=== PATIENT | female | born 1950 | race Caucasian/White ===

== ENCOUNTER 2016-09-06 00:38 | Inpatient (IN) | payer MEDICARE ==
[~2016-09-06 00:38] MED LIST: ACETAMINOPHEN325 MG PO; ALDACTONE25 MG PO; ASPIRIN81 MG PO; BACLOFEN 10MG T10 MG PO; CEFDINIR300 MG PO; COLACE100 MG PO; DEMADEX20 MG PO; DULCOLAX10 MG PR; DUONEB 2.5-0.5M1 AMP NEB; FLORASTOR250 MG PO; GLUCOPHAGE500 MG PO; GLUCOTROL5 MG PO; HUMALOG100 UNIT/1 SQ; HUMALOG100 UNIT/3 SC; ISOSORBIDE MONO60 MG PO; K-DUR20 MEQ PO; KEPPRA500 MG PO; LANTUS100 UNIT/1 SQ; LASIX40 MG PO; LEVAQUIN 500MG500 MG PO; LEVEMIR100 UNIT/1 SC; LIPITOR10 MG PO; LISINOPRIL10 MG PO; LOFIBRA160 MG PO; LOPRESSOR25 MG PO; LOPRESSOR50 MG PO; LOVENOX40 MG/0.4 SC; MEDROL 4MG DOSEP4 MG PO; MELATONIN3 MG PO; MUCINEX600 MG PO; NIFEREX150 MG PO; NITROQUIK SL0.4 MG SL; NOVOLIN R100 UNIT/2 SC; OXY-IR 5MG5 MG PO; PHENERGAN25 M1 PO; PLAVIX75 MG PO; PRILOSEC20 MG PO; PROTONIX 40MG T40 MG PO; PROTONIX40 MG PO; SENOKOT-S TABL1 EACH PO; TAB-A-VITE1 EACH PO; TORSEMIDE20 MG PO; TRAMADOL HCL50 MG PO; TRIPLE ANTIBIO1 EACH TOP; TYLENOL325 M1 PO; TYLENOL650 MG PR; VENTOLIN HFA IN18 GM INH; WELLBUTRIN XL150 MG PO; WELLBUTRIN75 MG PO; XANAX0.25 MG PO
[2016-09-06 01:34] LABS: EOSINOPHIL 1.6 % (0-7); HCT 34.3 % (37.0-47.0); HGB 10.9 g/dl (12.5-16.0); LYMPHOCYTE 20.7 % (15-48); MCH 28.2 pg (25.0-31.0); MCHC 31.8 g/dL (32.0-36.0); MCV 88.9 fL (78.0-100.0); MONOCYTE 6.1 % (0-12); MPV 9.1 fL (6.0-9.5); NEUTROPHIL 70.6 % (41-80); PLT 270 K/uL (150-400); RBC 3.86 M/uL (4.20-5.40); RDW 14.5 % (11.5-14.0)
[2016-09-06 01:38] LABS: WBC 10.6 K/uL (4.0-10.5)
[2016-09-06 01:55] LABS: ALBUMIN 3.9 g/dL (3.4-4.8); BILIRUBIN - TOTAL 0.2 mg/dL (0.1-1.0); CREATININE 1.9 mg/dL (0.5-1.0); GLOBULIN (CALCULATION) 3.1 g/dL (2.2-4.2); POTASSIUM 3.8 mmol/L (3.5-5.1)
[2016-09-06 03:45] LABS: LACTIC ACID 2.6 mmol/L (0.5-2.2)
[2016-09-06 06:32] LABS: BASOPHIL 0.2 % (0-2); EOSINOPHIL 0.1 % (0-7); HCT 34.3 % (37.0-47.0); HGB 10.9 g/dl (12.5-16.0); MCH 27.7 pg (25.0-31.0); MCHC 31.8 g/dL (32.0-36.0); MCV 87.1 fL (78.0-100.0); MONOCYTE 1.7 % (0-12); MPV 9.3 fL (6.0-9.5); PLT 192 K/uL (150-400); RBC 3.94 M/uL (4.20-5.40); RDW 14.5 % (11.5-14.0); WBC 10.9 K/uL (4.0-10.5)
[2016-09-06 06:48] LABS: CREATININE 1.5 mg/dL (0.5-1.0); MAGNESIUM 1.43 mg/dL (1.40-2.10)
[2016-09-06 06:56] LABS: CKMB 2.42 ng/mL (0.97-4.94); TROPONIN T 0.023 ng/mL
[2016-09-06 11:47] LABS: BILIRUBIN NEGATIVE (NEGATIVE); BLOOD TRACE-INTACT Ery/uL (NEGATIVE); CLARITY CLEAR (CLEAR); COLOR COLORLESS (YELLOW); GLUCOSE (U) 3+ mg/dL (NORMAL); KETONE (U) NEGATIVE (NEGATIVE); LEUKOCYTES NEGATIVE Leu/uL (NEGATIVE); NITRITE NEGATIVE (NEGATIVE); PROTEIN NEGATIVE (NEGATIVE); UROBILINOGEN 0.2 mg/dL (0.2-1.0); pH 5.5 (5.0-9.0)
[2016-09-06 12:08] LABS: BACTERIA TRACE; RENAL EPITHELIAL CELLS RARE
[2016-09-06 12:48] LABS: CKMB 3.07 ng/mL (0.97-4.94); TROPONIN T 0.018 ng/mL
[2016-10-25] MEDS ORDERED: FEOSOL325 MG PO (16:08)
[2016-10-25] MEDS ORDERED: PRINIVIL10 MG PO (16:09)
[2016-10-25] MEDS ORDERED: ZITHROMAX500 MG PO (16:09)
[2016-10-25] MEDS ORDERED: FLORASTOR250 MG PO (16:10)
[2016-10-25] MEDS ORDERED: INVANZ 1GM1 GM/VIAL IM (16:11)
[2017-03-18] MEDS ORDERED: LOPID600 MG PO (10:13)
[2017-03-18] MEDS ORDERED: HUMALOG100 UNIT/3 SC (10:14)
[2017-03-18] MEDS ORDERED: LIPITOR40 MG PO (10:14)
[2017-03-18] MEDS ORDERED: LASIX20 MG PO (10:14)
[2017-03-18] MEDS ORDERED: WELLBUTRIN XL150 MG PO (10:14)
[2017-03-18] MEDS ORDERED: LEXAPRO10 MG PO (10:14)
[2017-03-18] MEDS ORDERED: NEURONTIN300 MG PO (12:24)
[2017-03-18] MEDS ORDERED: HYDROCODONE-APA1 TAB PO (14:29)
[2017-03-18] MEDS ORDERED: LANTUS SOL100 UNIT/1 SQ (14:30)
== END 2016-09-06 15:50 | disposition other institution (70) | DRG 208 ==
LOC: FER 00:38 → FICU 02:55
PROVIDERS: Allergy & Immunology; Emergency Medicine; ADMIT Internal Medicine
PROC: 0BH17EZ Insertion of Endotracheal Airway into Trachea, Via Natural or Artificial Opening (ICD-10-PCS; principal; 2016-09-06)
PROC: 5A1935Z Respiratory Ventilation, Less than 24 Consecutive Hours (ICD-10-PCS; 2016-09-06)
DX: J96.22 Acute and chronic respiratory failure with hypercapnia (principal); J96.21 Acute and chronic respiratory failure with hypoxia; J15.9 Unspecified bacterial pneumonia; J44.0 Chronic obstructive pulmonary disease with (acute) lower respiratory infection; E11.22 Type 2 diabetes mellitus with diabetic chronic kidney disease; J44.1 Chronic obstructive pulmonary disease with (acute) exacerbation; I69.354 Hemiplegia and hemiparesis following cerebral infarction affecting left non-dominant side; I27.2 Other secondary pulmonary hypertension; I25.10 Atherosclerotic heart disease of native coronary artery without angina pectoris; I25.5 Ischemic cardiomyopathy; F41.9 Anxiety disorder, unspecified; E78.5 Hyperlipidemia, unspecified; G40.909 Epilepsy, unspecified, not intractable, without status epilepticus; Y95 Nosocomial condition; Z95.0 Presence of cardiac pacemaker; Z99.81 Dependence on supplemental oxygen; Z79.82 Long term (current) use of aspirin; Z79.01 Long term (current) use of anticoagulants; Z87.891 Personal history of nicotine dependence; Z79.4 Long term (current) use of insulin; I12.9 Hypertensive chronic kidney disease with stage 1 through stage 4 chronic kidney disease, or unspecified chronic kidney disease; N18.9 Chronic kidney disease, unspecified
CPT/HCPCS: 31500; 36415; 36600; 71010; 80048; 80053; 81001; 82550; 82553; 82803; 83605; 83735; 83880; 84484; 85025; 87040; 87070; 87205; 87804; 87899; 93005; 94002; 94640; 94770; C9113; J1953; J1956; J2270; J2543; J2704; J2930; J3370

== ENCOUNTER 2016-10-11 12:12 | Inpatient (IN) | payer MEDICARE ==
[~2016-10-11] VITALS: Ht 157.5 cm; Wt 82.2 kg
[2016-10-11 14:28] LABS: BASOPHIL 0.4 % (0-2); EOSINOPHIL 1.2 % (0-7); HCT 37.4 % (37.0-47.0); HGB 11.7 g/dl (12.5-16.0); MCH 28.1 pg (25.0-31.0); MCHC 31.3 g/dL (32.0-36.0); MCV 89.9 fL (78.0-100.0); MONOCYTE 4.6 % (0-12); MPV 10.3 fL (6.0-9.5); NEUTROPHIL 51.8 % (41-80); PLT 355 K/uL (150-400); RBC 4.16 M/uL (4.20-5.40); RDW 14.9 % (11.5-14.0)
[2016-10-11 14:29] LABS: WBC 15.9 K/uL (4.0-10.5)
[2016-10-11 14:38] LABS: ALBUMIN 4.3 g/dL (3.4-4.8); BILIRUBIN - TOTAL 0.2 mg/dL (0.1-1.0); CREATININE 1.4 mg/dL (0.5-1.0); GLOBULIN (CALCULATION) 3.2 g/dL (2.2-4.2); POTASSIUM 3.7 mmol/L (3.5-5.1); TOTAL PROTEIN 7.5 g/dL (6.4-8.3)
[2016-10-12 04:19] LABS: HCT 29.9 % (37.0-47.0); HGB 9.4 g/dl (12.5-16.0); MCH 27.6 pg (25.0-31.0); MCHC 31.4 g/dL (32.0-36.0); MCV 87.7 fL (78.0-100.0); MPV 10.1 fL (6.0-9.5); RBC 3.41 M/uL (4.20-5.40); RDW 14.6 % (11.5-14.0); WBC 13.7 K/uL (4.0-10.5)
[2016-10-12 04:48] LABS: CREATININE 1.3 mg/dL (0.5-1.0); POTASSIUM 4.4 mmol/L (3.5-5.1)
[2016-10-13 03:50] LABS: HCT 27.4 % (37.0-47.0); HGB 8.6 g/dl (12.5-16.0); MCH 27.9 pg (25.0-31.0); MCHC 31.4 g/dL (32.0-36.0); MPV 9.7 fL (6.0-9.5); RBC 3.08 M/uL (4.20-5.40); RDW 14.8 % (11.5-14.0); WBC 11.5 K/uL (4.0-10.5)
[2016-10-13 04:07] LABS: CREATININE 1.7 mg/dL (0.5-1.0); POTASSIUM 3.6 mmol/L (3.5-5.1)
[2016-10-13] MEDS ORDERED: PREDNISONE 20MG20 MG PO (10:35)
--- NOTE | 2016-10-13 11:46 | NUR ---
PT DISCHARGED FROM TCU VIA WHEELCHAIR. PT TOLERATED TRANSPORT TO [facility]. VITALS STABE AT TIME OF DISCHARGE BP 130/54 HR 63 O2 100% ON 2LNC
--- NOTE | 2016-10-13 11:49 | NUR ---
DISCHARGE INSTRUCTIONS REVIEWED, NEW MEICATIONS REVIEWED. QUESTIONS ANSWERED, PT INSTRUCTED TO COME TO ER IF ANY WORSENING SYMPTOMS. PT VERBALIZED UNDERSTANDING OF ALL
[2016-10-13] MEDS ORDERED: LEVAQUIN250 MG PO (14:52)
[2016-10-25] MEDS ORDERED: FEOSOL325 MG PO (16:08)
[2016-10-25] MEDS ORDERED: PRINIVIL10 MG PO (16:09)
[2016-10-25] MEDS ORDERED: ZITHROMAX500 MG PO (16:09)
[2016-10-25] MEDS ORDERED: FLORASTOR250 MG PO (16:10)
[2016-10-25] MEDS ORDERED: INVANZ 1GM1 GM/VIAL IM (16:11)
[2017-03-18] MEDS ORDERED: LOPID600 MG PO (10:13)
[2017-03-18] MEDS ORDERED: LIPITOR40 MG PO (10:14)
[2017-03-18] MEDS ORDERED: LASIX20 MG PO (10:14)
[2017-03-18] MEDS ORDERED: HUMALOG100 UNIT/3 SC (10:14)
[2017-03-18] MEDS ORDERED: WELLBUTRIN XL150 MG PO (10:14)
[2017-03-18] MEDS ORDERED: LEXAPRO10 MG PO (10:14)
[2017-03-18] MEDS ORDERED: NEURONTIN300 MG PO (12:24)
[2017-03-18] MEDS ORDERED: HYDROCODONE-APA1 TAB PO (14:29)
[2017-03-18] MEDS ORDERED: LANTUS SOL100 UNIT/1 SQ (14:30)
== END 2016-10-13 11:39 | disposition home health service (06) | DRG 291 ==
LOC: FER 12:12 → FICU 16:21
PROVIDERS: Emergency Medicine; ADMIT Internal Medicine Adolescent Medicine
DX: I50.41 Acute combined systolic (congestive) and diastolic (congestive) heart failure (principal); J96.20 Acute and chronic respiratory failure, unspecified whether with hypoxia or hypercapnia; E11.22 Type 2 diabetes mellitus with diabetic chronic kidney disease; J44.1 Chronic obstructive pulmonary disease with (acute) exacerbation; I13.0 Hypertensive heart and chronic kidney disease with heart failure and stage 1 through stage 4 chronic kidney disease, or unspecified chronic kidney disease; I69.354 Hemiplegia and hemiparesis following cerebral infarction affecting left non-dominant side; G89.4 Chronic pain syndrome; I27.2 Other secondary pulmonary hypertension; N18.3 Chronic kidney disease, stage 3 (moderate); D63.1 Anemia in chronic kidney disease; E66.9 Obesity, unspecified; I25.10 Atherosclerotic heart disease of native coronary artery without angina pectoris; Z95.1 Presence of aortocoronary bypass graft; Z95.0 Presence of cardiac pacemaker; Z79.82 Long term (current) use of aspirin; Z79.01 Long term (current) use of anticoagulants; Z79.4 Long term (current) use of insulin
CPT/HCPCS: 36415; 36600; 80048; 80053; 82803; 82962; 84484; 85025; 85379; 93005; 94640; 97163; 97166; 97535; J0885; J1815; J1956; J2060; J2930

== ENCOUNTER 2020-09-21 14:44 | Day surgery (SDCO) | payer MEDICARE ==
[~2020-09-21] VITALS: Ht 157.5 cm; Wt 102.7 kg
[~2020-09-21 14:44] MED LIST changes: +ALLOPURINOL100 MG PO; +ASPIRIN EC81 MG PO; +CARVEDILOL6.25 MG PO; +COREG12.5 MG PO; +COUMADIN1 MG PO; +DOXYCYCLINE MO100 M1 PO; +FEOSOL325 MG PO; +FUROSEMIDE 40MG40 MG PO; +GLIPIZIDE5 MG PO; +HYDROCODON-ACE1 EAC4 PO; +HYDROCODONE-APA1 TAB PO; +INVANZ 1GM1 GM/VIAL IM; +LANTUS **100 UNITS/ SC; +LANTUS SOL100 UNIT/1 SQ; +LASIX80 MG PO; +LEVAQUIN250 MG PO; +LEXAPRO10 MG PO; +LIPITOR40 MG PO; +LOPID600 MG PO; +MACROBID100 MG PO; +NEURONTIN300 MG PO; +NORVASC5 MG PO; +PERCOCET 5-3251 EACH PO; +PHENERGAN12.5 M1 PO; +POTASSIUM CHLO10 ME1 PO; +PREDNISONE 10MG10 MG PO; +PREDNISONE 20MG20 MG PO; +PRINIVIL10 MG PO; +THERA M PLUS T1 EACH PO; +VIBRAMYCIN100 MG PO; +VITAMIN B-121000 MC1 PO; +ZITHROMAX500 MG PO
[2020-09-21 16:13] LABS: BASOPHIL 0.3 % (0-2); EOSINOPHIL 1.4 % (0-7); HCT 31.7 % (37.0-47.0); HGB 9.8 g/dl (12.5-16.0); LYMPHOCYTE 19.2 % (15-48); MCH 28.7 pg (25.0-31.0); MCHC 30.9 g/dL (32.0-36.0); MONOCYTE 7.2 % (0-12); MPV 9.7 fL (6.0-9.5); NRBC 0; PLT 122 K/uL (150-400); RBC 3.41 M/uL (4.20-5.40); RDW 14.3 % (11.5-14.0); WBC 7.9 K/uL (4.0-10.5)
[2020-09-21 16:50] LABS: BILIRUBIN NEGATIVE (NEGATIVE); BLOOD TRACE-INTACT Ery/uL (NEGATIVE); CLARITY CLEAR (CLEAR); COLOR YELLOW (YELLOW); GLUCOSE (U) 2+ mg/dL (NORMAL); LEUKOCYTES 1+ Leu/uL (NEGATIVE); NITRITE NEGATIVE (NEGATIVE); PROTEIN NEGATIVE (NEGATIVE); UROBILINOGEN 0.2 mg/dL (0.2-1.0)
[2020-09-21 16:54] LABS: INR 2.13 (0.9-1.2); PROTHROMBIN TIME 22.7 SECONDS (11.4-13.6); PTT 36.3 SECONDS (22.2-34.7)
[2020-09-21 17:03] LABS: BACTERIA TRACE; URINARY RBC RARE; URINARY WBC RARE
[2020-09-21 17:17] LABS: ALBUMIN 3.3 g/dL (3.4-5.0); BILIRUBIN - TOTAL 0.3 mg/dL (0.2-1.0); BUN/CREAT RATIO (CALC) 24.7 RATIO; CREATININE 1.54 mg/dL (0.51-0.95); GLOBULIN (CALCULATION) 4.2 g/dL; MAGNESIUM 1.9 mg/dL (1.8-2.4); POTASSIUM 3.7 mmol/L (3.5-5.1); TOTAL PROTEIN 7.5 g/dL (6.4-8.2)
[2020-09-21] MEDS ORDERED: STOOL SOFTENER100 MG PO (20:32)
[2020-09-21] MEDS ORDERED: ISOSORBIDE MONO60 MG PO (20:33)
[2020-09-21] MEDS ORDERED: LIPITOR40 M1 PO (20:33)
[2020-09-21] MEDS ORDERED: ZYLOPRIM100 MG PO (20:33)
[2020-09-21] MEDS ORDERED: FEOSOL325 MG PO (20:34)
[2020-09-21] MEDS ORDERED: NEURONTIN300 MG PO ×2 (20:35→20:36)
[2020-09-21] MEDS ORDERED: DEMADEX20 MG PO ×2 (20:35)
[2020-09-21] MEDS ORDERED: WARFARIN SODIUM2 MG PO (20:36)
[2020-09-21] MEDS ORDERED: NORCO 5-325 TA1 EACH PO (20:36)
[2020-09-21] MEDS ORDERED: ESCITALOPRAM OX20 MG PO (20:37)
[2020-09-21] MEDS ORDERED: COREG12.5 MG PO (20:37)
[2020-09-21] MEDS ORDERED: PANTOPRAZOLE SO40 MG PO (20:38)
[2020-09-21] MEDS ORDERED: HUMALOG100 UNIT/1 SC (20:39)
[2020-09-21] MEDS ORDERED: LANTUS **100 UNITS/ SC (20:40)
[2020-09-21] MEDS ORDERED: DAILY VALUE1 EACH PO (20:40)
[2020-09-22 05:58] LABS: HCT 30.3 % (37.0-47.0); HGB 9.5 g/dl (12.5-16.0); MCH 29.1 pg (25.0-31.0); MCHC 31.4 g/dL (32.0-36.0); MCV 92.7 fL (78.0-100.0); MPV 10.4 fL (6.0-9.5); RBC 3.27 M/uL (4.20-5.40); RDW 14.2 % (11.5-14.0)
[2020-09-22 06:01] LABS: INR 2.36 (0.9-1.2); PROTHROMBIN TIME 24.6 SECONDS (11.4-13.6)
[2020-09-22 06:10] LABS: BUN/CREAT RATIO (CALC) 19.5 RATIO; CREATININE 1.54 mg/dL (0.51-0.95); POTASSIUM 3.8 mmol/L (3.5-5.1)
[2020-09-23 06:35] LABS: BASOPHIL 0.2 % (0-2); EOSINOPHIL 1.5 % (0-7); HGB 9.6 g/dl (12.5-16.0); LYMPHOCYTE 28.3 % (15-48); MCH 29.2 pg (25.0-31.0); MCV 91.2 fL (78.0-100.0); MONOCYTE 8.1 % (0-12); MPV 9.4 fL (6.0-9.5); NEUTROPHIL 61.5 % (41-80); NRBC 0; PLT 129 K/uL (150-400); RBC 3.29 M/uL (4.20-5.40); RDW 14.1 % (11.5-14.0); WBC 8.2 K/uL (4.0-10.5)
[2020-09-23 06:53] LABS: BUN/CREAT RATIO (CALC) 19.5 RATIO; CREATININE 1.64 mg/dL (0.51-0.95); POTASSIUM 3.4 mmol/L (3.5-5.1)
--- NOTE | 2020-09-23 12:02 | NUR ---
09/23 MS Lawson lives with her spouse. She has home 02, rw, walk-in bath, wc, and cane. A referral was made to [facility] per patient choice; affliation explained. - Report to PEGGY Orellana RN.
--- NOTE | 2020-09-23 13:46 | NUR ---
PATIENT DISCHARGED VIA WHEELCHAIR ACCOMPANIED BY AND RN. IV AND ALL MONITORS DCD. DISCHARGE INSTRUCTIONS GIVEN TO BOTH PATIENT AND , VERBALIZED UNSTANDING
== END 2020-09-23 13:30 | disposition home health service (06) ==
LOC: FER 14:44 → FTCU 17:26
PROVIDERS: Emergency Medicine; Nurse Practitioner Family; ADMIT Hospitalist
DX: I11.0 Hypertensive heart disease with heart failure (principal); I50.31 Acute diastolic (congestive) heart failure; G47.33 Obstructive sleep apnea (adult) (pediatric); K21.9 Gastro-esophageal reflux disease without esophagitis; Z79.01 Long term (current) use of anticoagulants; Z20.822 Contact with and (suspected) exposure to COVID-19; Z86.73 Personal history of transient ischemic attack (TIA), and cerebral infarction without residual deficits
CPT/HCPCS: 36415; 71045; 80048; 80053; 81001; 82550; 82962; 83735; 83880; 84484; 85025; 85610; 85730; 93005; 93971; 97116; 97162; 97166; 97530; 97530-GP; G0378; U0002

== ENCOUNTER 2021-02-04 20:05 | Day surgery (SDCO) | payer MEDICARE ==
[~2021-02-04] VITALS: Ht 157.5 cm; Wt 89.0 kg
[~2021-02-04 20:05] MED LIST changes: +DAILY VALUE1 EACH PO; +ESCITALOPRAM OX20 MG PO; +HUMALOG100 UNIT/1 SC; +LIPITOR40 M1 PO; +NORCO 5-325 TA1 EACH PO; +PANTOPRAZOLE SO40 MG PO; +STOOL SOFTENER100 MG PO; +WARFARIN SODIUM2 MG PO; +ZYLOPRIM100 MG PO
[2021-02-04 21:38] LABS: BASOPHIL 0.4 % (0-2); EOSINOPHIL 1.6 % (0-7); HCT 33.7 % (37.0-47.0); HGB 10.2 g/dl (12.5-16.0); LYMPHOCYTE 19.1 % (15-48); MCH 27.3 pg (25.0-31.0); MCHC 30.3 g/dL (32.0-36.0); MCV 90.1 fL (78.0-100.0); NEUTROPHIL 72.7 % (41-80); NRBC 0; PLT 127 K/uL (150-400); RBC 3.74 M/uL (4.20-5.40); RDW 15.2 % (11.5-14.0)
[2021-02-04 21:46] LABS: INR 2.03 (0.9-1.2); PROTHROMBIN TIME 22.1 SECONDS (11.8-13.4)
[2021-02-04 21:54] LABS: ALBUMIN 3.9 g/dL (3.4-5.0); BILIRUBIN - TOTAL 0.3 mg/dL (0.2-1.0); BUN/CREAT RATIO (CALC) 19.3 RATIO; CREATININE 1.45 mg/dL (0.51-0.95); GLOBULIN (CALCULATION) 4.2 g/dL; TOTAL PROTEIN 8.1 g/dL (6.4-8.2)
[2021-02-04 22:00] LABS: PRO-BNP 3873 pg/mL (<125)
[2021-02-05] MEDS ORDERED: NEURONTIN300 MG PO (04:06)
[2021-02-05 05:58] LABS: BASOPHIL 0.4 % (0-2); EOSINOPHIL 0.2 % (0-7); HCT 35.3 % (37.0-47.0); HGB 10.9 g/dl (12.5-16.0); LYMPHOCYTE 15.6 % (15-48); MCH 27.1 pg (25.0-31.0); MCHC 30.9 g/dL (32.0-36.0); MCV 87.8 fL (78.0-100.0); MONOCYTE 0.9 % (0-12); MPV 10.3 fL (6.0-9.5); NEUTROPHIL 82.4 % (41-80); NRBC 0; PLT 114 K/uL (150-400); RBC 4.02 M/uL (4.20-5.40); RDW 15.1 % (11.5-14.0); WBC 5.6 K/uL (4.0-10.5)
[2021-02-05 06:07] LABS: INR 1.96 (0.9-1.2); PROTHROMBIN TIME 21.5 SECONDS (11.8-13.4)
[2021-02-05 06:15] LABS: BUN/CREAT RATIO (CALC) 18.3 RATIO; CREATININE 1.42 mg/dL (0.51-0.95); POTASSIUM 4.3 mmol/L (3.5-5.1)
[2021-02-06 05:43] LABS: BASOPHIL 0.3 % (0-2); EOSINOPHIL 0.4 % (0-7); HCT 30.9 % (37.0-47.0); HGB 9.6 g/dl (12.5-16.0); LYMPHOCYTE 24.6 % (15-48); MCH 27.5 pg (25.0-31.0); MCHC 31.1 g/dL (32.0-36.0); MCV 88.5 fL (78.0-100.0); MONOCYTE 7.5 % (0-12); MPV 10.5 fL (6.0-9.5); NRBC 0; PLT 115 K/uL (150-400); RBC 3.49 M/uL (4.20-5.40); RDW 15.4 % (11.5-14.0); WBC 9.6 K/uL (4.0-10.5)
[2021-02-06 05:58] LABS: BUN/CREAT RATIO (CALC) 22.5 RATIO; CREATININE 1.6 mg/dL (0.51-0.95); POTASSIUM 3.9 mmol/L (3.5-5.1)
--- NOTE | 2021-02-06 14:44 | NUR ---
MET WITH PT. PT REPORTED THAT SHE HAS A ROLLING WALKER, CANE, HOME O2, CPAP, NEUBLIZER AND THAT SHE IS CURRENT WITH [facility]. PT RESIDES WITH HER SPOUSE. PT SIGNED A CHOICE FORM.
[2021-02-07 06:21] LABS: INR 2.23 (0.9-1.2); PROTHROMBIN TIME 23.8 SECONDS (11.8-13.4)
[2021-02-07 06:42] LABS: BUN/CREAT RATIO (CALC) 29.9 RATIO; CREATININE 1.47 mg/dL (0.51-0.95); POTASSIUM 3.6 mmol/L (3.5-5.1)
[2021-02-07] MEDS ORDERED: PREDNISONE 20MG20 MG PO (13:31)
== END 2021-02-07 14:55 | disposition home health service (06) ==
LOC: FER 20:05 → FMS 23:09
PROVIDERS: Allergy & Immunology Allergy; Nurse Practitioner; Physician Assistant; ADMIT Internal Medicine
DX: J44.1 Chronic obstructive pulmonary disease with (acute) exacerbation (principal); E11.22 Type 2 diabetes mellitus with diabetic chronic kidney disease; I13.0 Hypertensive heart and chronic kidney disease with heart failure and stage 1 through stage 4 chronic kidney disease, or unspecified chronic kidney disease; N18.30 Chronic kidney disease, stage 3 unspecified; I50.33 Acute on chronic diastolic (congestive) heart failure; I25.10 Atherosclerotic heart disease of native coronary artery without angina pectoris; Z95.1 Presence of aortocoronary bypass graft; F17.210 Nicotine dependence, cigarettes, uncomplicated; Z95.5 Presence of coronary angioplasty implant and graft; E78.5 Hyperlipidemia, unspecified; D63.1 Anemia in chronic kidney disease; E11.40 Type 2 diabetes mellitus with diabetic neuropathy, unspecified; I27.20 Pulmonary hypertension, unspecified; Z95.0 Presence of cardiac pacemaker; Z96.642 Presence of left artificial hip joint; Z79.4 Long term (current) use of insulin; Z20.822 Contact with and (suspected) exposure to COVID-19; Z79.01 Long term (current) use of anticoagulants
CPT/HCPCS: 36415; 36600; 71045; 80048; 80053; 82803; 82962; 83880; 84484; 85025; 85610; 93005; 94640; 97116; 97161; G0378; J0360; J0696; J2930; J7512; U0002

== ENCOUNTER 2021-02-28 12:16 | Emergency (ER) | payer MEDICARE ==
[2021-02-28 13:02] LABS: BASOPHIL 0.3 % (0-2); EOSINOPHIL 1.2 % (0-7); HCT 35.5 % (37.0-47.0); HGB 10.6 g/dl (12.5-16.0); LYMPHOCYTE 11.9 % (15-48); MCH 27.1 pg (25.0-31.0); MCHC 29.9 g/dL (32.0-36.0); MCV 90.8 fL (78.0-100.0); MONOCYTE 5.8 % (0-12); MPV 10.8 fL (6.0-9.5); NEUTROPHIL 80.4 % (41-80); NRBC 0; PLT 133 K/uL (150-400); RBC 3.91 M/uL (4.20-5.40); RDW 14.9 % (11.5-14.0); WBC 10.2 K/uL (4.0-10.5)
[2021-02-28 13:29] LABS: ALBUMIN 3.7 g/dL (3.4-5.0); BILIRUBIN - TOTAL 0.5 mg/dL (0.2-1.0); CREATININE 1.24 mg/dL (0.51-0.95); GLOBULIN (CALCULATION) 3.5 g/dL; POTASSIUM 3.7 mmol/L (3.5-5.1); TOTAL PROTEIN 7.2 g/dL (6.4-8.2)
== END 2021-02-28 14:25 | disposition home or self-care (01) ==
LOC: FER 12:16
PROVIDERS: Emergency Medicine
DX: J44.9 Chronic obstructive pulmonary disease, unspecified (principal); I11.0 Hypertensive heart disease with heart failure; I50.9 Heart failure, unspecified; E11.9 Type 2 diabetes mellitus without complications; Z20.822 Contact with and (suspected) exposure to COVID-19
CPT/HCPCS: 36415; 71045; 80053; 83880; 84484; 85025; 93005; J1940; U0002

== ENCOUNTER 2021-03-10 14:49 | Emergency (ER) | payer MEDICARE ==
[2021-03-10 15:26] LABS: BASOPHIL 0.5 % (0-2); EOSINOPHIL 2.3 % (0-7); HCT 31.3 % (37.0-47.0); HGB 9.3 g/dl (12.5-16.0); LYMPHOCYTE 26.4 % (15-48); MCH 27.3 pg (25.0-31.0); MCHC 29.7 g/dL (32.0-36.0); MCV 91.8 fL (78.0-100.0); MONOCYTE 8.8 % (0-12); MPV 11.3 fL (6.0-9.5); NEUTROPHIL 61.4 % (41-80); NRBC 0; PLT 147 K/uL (150-400); RBC 3.41 M/uL (4.20-5.40); RDW 15.3 % (11.5-14.0); WBC 6.6 K/uL (4.0-10.5)
[2021-03-10 15:38] LABS: ALBUMIN 3.6 g/dL (3.4-5.0); BILIRUBIN - TOTAL 0.3 mg/dL (0.2-1.0); BUN/CREAT RATIO (CALC) 19.6 RATIO; CREATININE 1.58 mg/dL (0.51-0.95); GLOBULIN (CALCULATION) 3.7 g/dL; POTASSIUM 3.6 mmol/L (3.5-5.1); TOTAL PROTEIN 7.3 g/dL (6.4-8.2)
[2021-03-10 15:39] LABS: PRO-BNP 6816 pg/mL (<125)
[2021-03-10 15:41] LABS: LACTIC ACID 3.5 mmol/L (0.4-1.9)
[2021-03-10 15:42] LABS: CKMB 1.7 ng/mL (0.0-3.6); PRO-BNP 6814 pg/mL (<125)
== END 2021-03-10 16:55 | disposition home or self-care (01) ==
LOC: FER 14:49
PROVIDERS: Emergency Medicine
DX: E11.22 Type 2 diabetes mellitus with diabetic chronic kidney disease (principal); I13.0 Hypertensive heart and chronic kidney disease with heart failure and stage 1 through stage 4 chronic kidney disease, or unspecified chronic kidney disease; N18.9 Chronic kidney disease, unspecified; I50.9 Heart failure, unspecified; D63.1 Anemia in chronic kidney disease; J44.9 Chronic obstructive pulmonary disease, unspecified; I25.10 Atherosclerotic heart disease of native coronary artery without angina pectoris; Z95.0 Presence of cardiac pacemaker
CPT/HCPCS: 36415; 36600; 71045; 80053; 82553; 82803; 83605; 83880; 84145; 84484; 85025; 87040; 93005; J1940

== ENCOUNTER 2021-04-03 11:32 | Emergency (ER) | payer MEDICARE ==
[2021-04-03 12:39] LABS: BASOPHIL 0.4 % (0-2); EOSINOPHIL 1.9 % (0-7); HCT 34.1 % (37.0-47.0); HGB 10.3 g/dl (12.5-16.0); MCH 27.7 pg (25.0-31.0); MCHC 30.2 g/dL (32.0-36.0); MCV 91.7 fL (78.0-100.0); MPV 10.6 fL (6.0-9.5); NEUTROPHIL 78.2 % (41-80); NRBC 0; PLT 133 K/uL (150-400); RBC 3.72 M/uL (4.20-5.40); RDW 15.3 % (11.5-14.0); WBC 10.3 K/uL (4.0-10.5)
[2021-04-03 12:51] LABS: INR 3.87 (0.9-1.2); PROTHROMBIN TIME 36.9 SECONDS (11.8-13.4)
[2021-04-03 12:58] LABS: CREATININE 1.72 mg/dL (0.51-0.95); POTASSIUM 3.6 mmol/L (3.5-5.1)
[2021-04-03 14:03] LABS: CORONAVIRUS 2019 SARS-COV-2 NEGATIVE (NEGATIVE); INFLUENZA A NAA NEGATIVE (NEGATIVE)
[2021-04-03] MEDS ORDERED: MEDROL 4MG DOSEP4 MG PO (14:59)
[2021-04-03] MEDS ORDERED: ZPAK PO (14:59)
== END 2021-04-03 15:30 | disposition home or self-care (01) ==
LOC: FER 11:32
PROVIDERS: Nurse Practitioner Family
DX: J44.1 Chronic obstructive pulmonary disease with (acute) exacerbation (principal); J02.9 Acute pharyngitis, unspecified; I10 Essential (primary) hypertension; Z95.1 Presence of aortocoronary bypass graft; Z20.822 Contact with and (suspected) exposure to COVID-19; Z86.73 Personal history of transient ischemic attack (TIA), and cerebral infarction without residual deficits
CPT/HCPCS: 36415; 71045; 80048; 85025; 85610; J1100; U0002

== ENCOUNTER 2021-04-06 14:58 | Emergency (ER) | payer MEDICARE ==
[~2021-04-06 14:58] MED LIST changes: +ZPAK PO
[2021-04-06 17:07] LABS: BASOPHIL 0.3 % (0-2); EOSINOPHIL 0.3 % (0-7); HCT 39.2 % (37.0-47.0); HGB 12.1 g/dl (12.5-16.0); LYMPHOCYTE 22.1 % (15-48); MCH 27.4 pg (25.0-31.0); MCHC 30.9 g/dL (32.0-36.0); MCV 88.7 fL (78.0-100.0); MONOCYTE 6.7 % (0-12); MPV 10.7 fL (6.0-9.5); NEUTROPHIL 70.1 % (41-80); NRBC 0; PLT 184 K/uL (150-400); RBC 4.42 M/uL (4.20-5.40); RDW 15.2 % (11.5-14.0); WBC 13.4 K/uL (4.0-10.5)
[2021-04-06 17:13] LABS: PROTHROMBIN TIME 68.6 SECONDS (11.8-13.4)
[2021-04-06 17:14] LABS: INR 8.46 (0.9-1.2)
[2021-04-06 17:48] LABS: CREATININE 1.49 mg/dL (0.51-0.95)
== END 2021-04-06 18:28 | disposition home or self-care (01) ==
LOC: FER 14:58
PROVIDERS: Nurse Practitioner Family
DX: R79.89 Other specified abnormal findings of blood chemistry (principal); E11.9 Type 2 diabetes mellitus without complications; J44.9 Chronic obstructive pulmonary disease, unspecified
CPT/HCPCS: 36415; 80048; 85025; 85610; 99283

== ENCOUNTER 2021-04-15 17:34 | Emergency (ER) | payer MEDICARE ==
[2021-04-15 18:11] LABS: BASOPHIL 0.5 % (0-2); EOSINOPHIL 1.2 % (0-7); HGB 11.7 g/dl (12.5-16.0); LYMPHOCYTE 21.6 % (15-48); MCH 27.7 pg (25.0-31.0); MCHC 31.6 g/dL (32.0-36.0); MCV 87.5 fL (78.0-100.0); MONOCYTE 6.7 % (0-12); NEUTROPHIL 69.5 % (41-80); NRBC 0; PLT 160 K/uL (150-400); RBC 4.23 M/uL (4.20-5.40); RDW 14.9 % (11.5-14.0)
[2021-04-15 18:31] LABS: ALBUMIN 3.7 g/dL (3.4-5.0); BILIRUBIN - TOTAL 0.5 mg/dL (0.2-1.0); BUN/CREAT RATIO (CALC) 38.6 RATIO; CREATININE 1.66 mg/dL (0.51-0.95); GLOBULIN (CALCULATION) 4.3 g/dL; POTASSIUM 3.7 mmol/L (3.5-5.1)
[2021-04-15 19:14] LABS: BILIRUBIN NEGATIVE (NEGATIVE); BLOOD TRACE-INTACT Ery/uL (NEGATIVE); CLARITY CLEAR (CLEAR); COLOR YELLOW (YELLOW); GLUCOSE (U) 3+ mg/dL (NORMAL); LEUKOCYTES TRACE Leu/uL (NEGATIVE); NITRITE NEGATIVE (NEGATIVE); PROTEIN TRACE (LOW) mg/dL (NEGATIVE); SPECIFIC GRAVITY <=1.005 (1.001-1.030); UROBILINOGEN 0.2 mg/dL (0.2-1.0)
[2021-04-15 19:56] LABS: CORONAVIRUS 2019 SARS-COV-2 NEGATIVE (NEGATIVE); INFLUENZA A NAA NEGATIVE (NEGATIVE)
[2021-04-15] MEDS ORDERED: CIPRO250 MG PO (21:12)
== END 2021-04-15 21:58 | disposition home or self-care (01) ==
LOC: FER 17:34
PROVIDERS: Internal Medicine
DX: N39.0 Urinary tract infection, site not specified (principal); E86.0 Dehydration; R10.30 Lower abdominal pain, unspecified; I10 Essential (primary) hypertension; E11.9 Type 2 diabetes mellitus without complications; I25.10 Atherosclerotic heart disease of native coronary artery without angina pectoris; Z86.73 Personal history of transient ischemic attack (TIA), and cerebral infarction without residual deficits; Z20.822 Contact with and (suspected) exposure to COVID-19
CPT/HCPCS: 36415; 80053; 81001; 83690; 84484; 85025; 93005; J2543; J7030; U0002

== ENCOUNTER 2021-07-14 03:20 | Emergency (ER) | payer MEDICARE ==
[~2021-07-14 03:20] MED LIST changes: +CIPRO250 MG PO
[2021-07-14 04:18] LABS: BASOPHIL 0.2 % (0-2); EOSINOPHIL 1.5 % (0-7); HCT 26.3 % (37.0-47.0); HGB 7.7 g/dl (12.5-16.0); LYMPHOCYTE 11.4 % (15-48); MCH 27.8 pg (25.0-31.0); MCHC 29.3 g/dL (32.0-36.0); MCV 94.9 fL (78.0-100.0); MONOCYTE 4.7 % (0-12); MPV 10.6 fL (6.0-9.5); NEUTROPHIL 81.6 % (41-80); NRBC 0; PLT 145 K/uL (150-400); RBC 2.77 M/uL (4.20-5.40); RDW 17.3 % (11.5-14.0); WBC 9.5 K/uL (4.0-10.5)
[2021-07-14 04:22] LABS: INR 3.01 (0.9-1.2); PROTHROMBIN TIME 30.2 SECONDS (11.8-13.4); PTT 47.4 SECONDS (24.4-34.7)
[2021-07-14 04:43] LABS: ALBUMIN 3.7 g/dL (3.4-5.0); BILIRUBIN - TOTAL 0.3 mg/dL (0.2-1.0); BUN/CREAT RATIO (CALC) 25.7 RATIO; C-REACTIVE PROTEIN 3.9 mg/dL (<=0.90); CREATININE 2.45 mg/dL (0.51-0.95); GLOBULIN (CALCULATION) 3.6 g/dL; POTASSIUM 4.5 mmol/L (3.5-5.1); TOTAL PROTEIN 7.3 g/dL (6.4-8.2)
[2021-07-14 04:56] LABS: CORONAVIRUS 2019 SARS-COV-2 NEGATIVE (NEGATIVE); INFLUENZA A NAA NEGATIVE (NEGATIVE)
[2021-07-14 10:27] LABS: HCT 27.2 % (37.0-47.0); HGB 8.1 g/dL (12.5-16.0)
[2021-07-14 10:32] LABS: RETICULOCYTE COUNT 5.3 % (1.0-2.0)
[2021-07-14 16:09] LABS: BUN/CREAT RATIO (CALC) 26.4 RATIO; CREATININE 2.39 mg/dL (0.51-0.95); POTASSIUM 4.6 mmol/L (3.5-5.1)
== END 2021-07-14 19:07 | disposition expired ==
LOC: FER 03:20
PROVIDERS: Emergency Medicine; Internal Medicine
DX: I46.9 Cardiac arrest, cause unspecified (principal); D64.9 Anemia, unspecified; G89.29 Other chronic pain; M79.606 Pain in leg, unspecified; I13.0 Hypertensive heart and chronic kidney disease with heart failure and stage 1 through stage 4 chronic kidney disease, or unspecified chronic kidney disease; N18.4 Chronic kidney disease, stage 4 (severe); I50.9 Heart failure, unspecified; J44.9 Chronic obstructive pulmonary disease, unspecified; Z86.73 Personal history of transient ischemic attack (TIA), and cerebral infarction without residual deficits; Z87.891 Personal history of nicotine dependence; Z20.822 Contact with and (suspected) exposure to COVID-19
CPT/HCPCS: 31500; 36415; 36600; 71250; 80048; 80053; 82728; 82803; 83735; 83880; 84145; 84484; 85014; 85018; 85025; 85610; 85730; 86140; 86850; 86900; 86901; 87040; 92950; 93005; 96374; 96375; 96376; J0171; J1170; J2001; J2405; U0002